=== PATIENT | male | born 1965 | race Caucasian/White ===

== ENCOUNTER 2017-11-22 12:35 | Emergency (ER) | payer SELFPAY ==
[2017-11-22] MEDS: DIPHTH/TET/ACEL PERTUSS (ADULT) 0.5 ML VIAL IM* (13:32)
[2017-11-22] MEDS: LIDOCAINE 1% (MDV) 20 ML INJ INJ (13:39)
[2017-11-22] MEDS: LIDOCAINE 1% (MDV) 10 ML INJ INJ (14:00)
== END 2017-11-22 14:39 | disposition home or self-care (01) ==
LOC: FTE 12:35
DX: S51.811A Laceration without foreign body of right forearm, initial encounter (principal); W26.8XXA Contact with other sharp object(s), not elsewhere classified, initial encounter; Y92.9 Unspecified place or not applicable; Z23 Encounter for immunization
CPT/HCPCS: 90471; 90715; 99283-25

== ENCOUNTER 2017-12-02 11:40 | Emergency (ER) | payer MEDICAID | END 2017-12-02 12:40 | disposition home or self-care (01) | LOC: FTE 11:40 | DX: Z48.02 Encounter for removal of sutures (principal); M25.511 Pain in right shoulder | CPT/HCPCS: 99283; Z7502 ==